=== PATIENT | male | born 1950 | race Caucasian/White ===

== ENCOUNTER 2022-08-10 08:24 | Outpatient (REF) | payer MEDICARE, SELFPAY | END 2022-08-10 08:25 | disposition home or self-care (01) | LOC: HO.BBR 08:24 | PROVIDERS: PCP Internal Medicine; Visit Provider Internal Medicine | DX: Z13.89 Encounter for screening for other disorder (principal) ==

== ENCOUNTER 2022-11-25 08:59 | Outpatient (REF) | payer MEDICARE, SELFPAY | END 2022-11-25 09:00 | disposition home or self-care (01) | LOC: HO.BBR 08:59 | PROVIDERS: Visit Provider Internal Medicine | DX: Z13.89 Encounter for screening for other disorder (principal) ==

== ENCOUNTER 2023-05-25 08:58 | Outpatient (REF) | payer MEDICARE, SELFPAY | END 2023-05-25 08:59 | disposition home or self-care (01) | LOC: HO.BBR 08:58 | PROVIDERS: PCP Pediatrics; Visit Provider Internal Medicine | DX: Z13.89 Encounter for screening for other disorder (principal) ==

== ENCOUNTER 2023-12-16 09:04 | Outpatient (REF) | payer MEDICARE, SELFPAY | END 2023-12-16 09:05 | disposition home or self-care (01) | LOC: HO.BBR 09:04 | PROVIDERS: PCP Pediatrics; Visit Provider Internal Medicine | DX: Z13.89 Encounter for screening for other disorder (principal) ==

== ENCOUNTER 2024-06-15 08:36 | Outpatient (REF) | payer MEDICARE, SELFPAY | END 2024-06-15 08:37 | disposition home or self-care (01) | LOC: HO.BBR 08:36 | PROVIDERS: PCP Pediatrics; Visit Provider Internal Medicine | DX: Z13.89 Encounter for screening for other disorder (principal) ==

== ENCOUNTER 2024-12-18 08:51 | Outpatient (REF) | payer MEDICARE, SELFPAY ==
--- OUTSIDE RECORDS SUMMARY | 2024-12-18 09:30 | XMS_ITS | Data Portability ---
Author Organization [place] - [facility], Allergy Address [address] [place] [phone] Care Team Providers Care Quantitative Developer Name Role Phone MICHAEL ROSAS Primary Care Provider Assessment Encounter Date Assessment Date Assessment LastModified by Organization Details LastModified Time 11/12/2024 11/12/2024 73 year-old male presents for cerumen impaction removal. Cerumen impaction removed bilaterally, which patient tolerated well. Hydrogen peroxide solution was used to soften cerumen in the office. Hearing returned to baseline after procedure. Otologic exam demonstrated TMs are intact with well-aerated middle ear spaces. Recommend a few drops of OTC mineral oil or Debrox as needed. Recommend 6-month follow-up for cerumen removal, sooner with issues. [email or web address] Not available 11/12/2024 11:20:45 Plan of Treatment Reminders Order Date Submit Date Provider Last Modified By Organization Details Last Modified Time Details Appointments Establish ed 15 2024 09:00A M VANESSA PARK PA-C Not available Not available Not available Lab None recorded. Referral None recorded. Procedures None recorded. Surgeries None recorded. Imaging None recorded. Medication Orders None recorded. Patient TargetsNo targets recorded. Patient InstructionsNo instructions recorded. Reason for Referral None Reported. Problems Name Problem SNOMED Code Status Onset Date Resolution Date Notes Provider Name and Address Organization Details Recorded Time Impacted cerumen of bilateral ears [id number] Active 2018 Impacted cerumen, bilateral ; Note: Date Diagnosed : 03/09/2019 10:01 AM (H61.23) Not Available [facility] 4 02:45:55 Sensorine ural hearing loss of bilateral ears 078816013 Active 2018 Sensorine ural hearing loss, bilateral ; Note: Date Diagnosed : 03/09/2019 10:29 AM (H90.3) Not Available [facility] 4 02:45:46 Problem Notes None recorded. Procedures Surgical History Date Name Laterality Status Provider Name and Address Organization Details Recorded Time 5 Cerumen removal without microscope bilat completed VANESSA PARK PA-C [address] [place] [address], [phone], [facility] 11/11/2024 22:06:22 Imaging Results None recorded. Procedure Notes None recorded. Medical Equipment None Reported. Allergies No known drug allergies Medications Name Sig Start Date Stop Date Status Note LastModified by Organization Details LastModified Time azithromycin 250 mg tablet 11/12 completed Not Available Not Available Not Available amoxicillin 875 mg tablet 11/12 completed Not Available Not Available Not Available Praluent Pen 75 mg/mL subcutaneous pen injector INJECT 75 MG UNDER THE SKIN EVERY 14 DAYS 11/12 completed Not Available Not Available Not Available Repatha SureClick 140 mg/mL subcutaneous pen injector INJECT 140MG UNDER THE SKIN EVERY 14 DAYS active Not Available Not Available No t Available Vitals None Recorded Social History None recorded. Functional Status None recorded. Mental Status None recorded. Family History Nothing Reported. Medical History No medical history recorded. Past Encounters Encounter ID Performer Location Encounter Start Date Encounter Closed Date Diagnosis/Indication Diagnosis SNOMED-CT Code Diagnosis ICD10 Code Diagnosis Note [id number] YASMINE CHAMPION MD [facility] [address] [place] [address] 11/12/2024 10:22:35 11/12/2024 11:03:56 Impacted cerumen of bilateral ears [id number] 957497 H61.23 Sensorineu ral hearing loss of bilateral ears 134557340 H90.3 Health Concerns Section Related Observation LastModified by Organization Detai ls LastModified Time None Recorded Concern Status LastModified by Organization Details LastModified Time None Recorded Advance Directives Directive None Recorded Payers Encounter Date Sequence Insurance Name Policy Number Policy Gordon Covered Member ID Gordon Member ID Guarantor Name 11/12/2024 1 MEDICARE [place]: [employer] [address] [id number] [employer] Zende[employer]annita 11/12/2024 2 [facility] [id number] [employer] Zendejasannita [id number] Notes Date Note Type Note Provider Name and Address Organization Details Recorded Time 11/12/2024 text/html 73 year-old presents for evaluation of the ears. Reports muffled hearing with more 'artis'. Denies otalgia, otorrhea, change in tinnitus, or Qtip use. YASMINE CHAMPION MD [address] [place] [address], [phone], [facility] - [facility] 11/12/2024 16:18:41
--- OUTSIDE RECORDS SUMMARY | 2024-12-18 09:30 | XMS_ITS | Continuity of Care Document ---
Author Organization [facility] Address [address] [place] [address]- Care Team Providers Care Soc Analyst Name Role Phone Rose John MD Primary Care Physician Encounter [facility] [place] [facility] Date(s): 11/20/24 - 11/27/24 [facility] [address], [place] [address] Attending Physician: Rose John MD Encounter Type: Office Visit Allergies, Adverse Reactions, Alerts Substance Criticality Severity Reaction Reaction Severity Status pravastatin Diarrhea Active simvastatin Active Immunizations Given and Recorded Vaccine Date Status Refusal Reason influenza virus vaccine, inactivated 08/06/22 Ambrosio rded influenza virus vaccine, inactivated 08/06/21 Ambrosio rded influenza virus vaccine, inactivated 07/10/20 Ambrosio rded influenza virus vaccine, inactivated 07/26/19 Ambrosio rded influenza virus vaccine, inactivated 08/15/18 Ambrosio rded influenza virus vaccine, inactivated 08/03/17 Ambrosio rded influenza virus vaccine, inactivated 08/06/16 Ambrosio rded influenza virus vaccine, inactivated 08/09/12 Ambrosio rded [id number] 12y+ bivalent booster vax 07/02/22 Recorded SARS-CoV-2 mRNA ([id number]) vax 01/29/22 Recorded SARS-CoV-2 (COVID-19) mRNA BNT-162b2 vac 07/24/21 Recorded SARS-CoV-2 (COVID-19) mRNA BNT-162b2 vac 01/09/21 Recorded SARS-CoV-2 (COVID-19) mRNA BNT-162b2 vac 12/20/20 Recorded pneumococcal 23-valent vaccine 12/27/17 Recorded pneumococcal 13-valent vaccine 3/1/17 Recorded tetanus/diphtheria/pertussis, acel(Tdap) 01/03/14 Recorded Zoster Vaccine Live 01/02/09 Recorded tetanus-diphtheria toxoids (Td) 10/25/05 Recorded Medications ondansetron 4 mg oral tablet Ondansetron HCl - 4 MG Oral Tablet one tab q 6-8 hrs Quantity: 40 Refills: 1 Arabella Voar M.D. Started 28-Dec-2018 Active, Maintenance, 12/28/18 12:00:00 AM EST Start Date: 12/28/18 Status: Ordered Repeat number: 1 Praluent Pen 75 mg/mL subcutaneous solution See Instructions, INJECT 75 MG UNDER THE SKIN EVERY 14 DAYS, # 2 mL, 0 Refills, Maintenance, 03/22/24 9:52:00 AM EDT, Dereck [facility] #[id number], 172, cm, 01/24/24 9:18:00 EDT, Height, 97, kg, 01/24/24 9:18:00 EDT, Dry Weight Start Date: 03/22/24 Status: Ordered Quantity: 2.0 Unit: mL Repeat number: 1 Repatha Prefilled Syringe 140 mg/mL subcutaneous solution = 140 mg, Subcutaneous Infusion, Every 14 days, # 6 each, 3 Refills, Maintenance, 04/11/24 4:20:00 PM EDT, Serena Harden [facility] #[id number], Partial fill upon patient request if the prescription is for a schedule II opioid drug., 172, cm, 01/24/24 9:18:00 EDT, Height, 97, kg, 01/24/24 9:18:00 EDT, Dry Weight Start Date: 04/11/24 Status: Ordered Quantity: 6.0 Unit: each Repeat number: 4 Problem List Condition Confirmation Course Effective Dates Status H ealth Status Informant Allergic rhinitis Confirmed Active Cholesterol level - finding Confirmed 03/12/20 Active Diarrhea Confirmed Active Diverticular disease Confirmed 09/12/19 Active Diverticulosis of colon Confirmed Active Environmental allergy Confirmed 09/12/19 Active Erectile dysfunction Confirmed 09/12/19 Active Body aches Confirmed Active Hearing loss Confirmed Active Hemochromatosis Confirmed Active Hyperlipidemia Confirmed Active Allergy desensitization therapy Confirmed Active Erectile dysfunction Confirmed Active Nausea and vomiting Confirmed Active Obese class I Confirmed Active Obstructive sleep apnea syndrome Confirmed Active Polyp of colon Confirmed 09/12/19 Active Prediabetes Confirmed 03/12/20 Active Need for 23-polyvalent pneumococcal polysaccharide vaccine Confirmed Active Statin not tolerated Confirmed 07/05/19 Active Subclinical hypothyroidism Confirmed Active Vitamin D deficiency Confirmed 09/12/19 Active Floaters Confirmed Active Vital Signs Most recent to oldest [Reference Range]: 1 Height 172 cm (11/20/24 1:57 PM) Weight 98.0 kg (11/20/24 1:57 PM) Oxygen Saturation [94-100 %] 97 % (11/20/24 1:57 PM) Pulse Rate [55-90 bpm] 63 bpm (11/20/24 1:57 PM) Body Mass Index [18.5-24.99 kg/m2] 33.13 kg/m2 *>HHI* (11/20/24 1:57 PM) Blood Pressure [90-138/55-84 mm Hg] 116/ 75mm Hg (11/20/24 1:57 PM) Blood pressure sites Arm, left (11/20/24 1:57 PM) Weight Obtained Via Standing scale (11/20/24 1:57 PM) Social History Social History Type Response Smoking Status Never (less than 100 in lifetime) entered on: 11/09/22 Sex Sex Representation Male (finding) Note * Tia Solis: PERFORM Event Display: Patient Education/Instruction Authored Date: [id number] Ambulatory Adult Visit Summary [place] [id number] Name: DAVID ALMANZAR : 1950?? Visit: 11/20/2024 13:29?? Ambulatory Visit Instructions ?? Your Care Team Primary Care Provider Rose John MD? This Visit Provider Rose John MD Vitals Signs Pulse Rate: 63 bpm Height: 172 cm Systolic Blood Pressure: 116 mm Hg Weight: 98 kg Diastolic Blood Pressure: 75 mm Hg Body Mass Index:??33.13 kg/m2??Critical Oxygen Saturation: 97 % Body surface area: 2.16 What to do next Follow-Up Appointments Follow Up with??Rose John MD When:??11/22/2025 01:40 PM EST Why: MEDICARE WELLNESS VISIT?? Where: [facility] [place] [address]- Future Orders Comprehensive Metabolic Panel - Once, *Est. 11/18/23 every 6 months (+/- 56 days) for 18 months, Order for Today?? Lipid Panel - Once, *Est. 11/18/23 every 6 months (+/- 56 days) for 18 months, Order for Today?? Medications The list below reflects the information in our records and provided by you today along with any changes made during this visit. Please continue your medications until treatment is completed or stopped by your provider. If this is different from the information you have or there are other questions,please contact the prescribing provider. What How Much When Instructions Unchanged alirocumab (Praluent Pen 75 mg/ mL subcutaneous solution)See instructions INJECT 75 MG UNDER THE SKIN EVERY 14 DAYS ?? Unchanged evolocumab (Repatha Prefilled Syringe 140 mg/ mL subcutaneous solution) 140 Milligram Subcutaneous Infusion Every 14 days Unchanged Ondansetron (ondansetron 4 mg oral tablet) Ondansetron HCl - 4 MG Oral Tablet one tab q 6-8 hrs Quantity: 40 Refills: 1 Arabella Vora M.D. Started 28-Dec-2018 Active ?? Medications and Immunizations Administered Medications Given During Visit No medications given during this visit.?? Allergies (NKA means No Known Allergies) pravastatin??(Diarrhea) simvastatin Common Emergency Awareness Tips IS IT A STROKE? Act FAST and Check for these signs: FACE Does the face look uneven? ARM Does one arm drift down? SPEECH Does their speech sound strange? TIME Call at any sign of stroke ?? Heart Attack Signs Chest discomfort: Most heart attacks involve discomfort in the center of the chest and lasts more than a few minutes, or goes away and comes back. It can feel like uncomfortable pressure, squeezing, fullness or pain. Discomfort in upper body: Symptoms can include pain or discomfort in one or both arms, back, neck, jaw or stomach. Shortness of breath: With or without discomfort. Other signs: Breaking out in a cold sweat, nausea, or lightheaded. Remember, MINUTES DO MATTER. If you experience any of these heart attack warning signs, call to get immediate medical attention! ?? Smoking can increase your chances of developing chronic health problems and can cause harmful effects to other family members in your house. If you smoke, you are strongly encouraged to quit. Please call [employer] at [phone] or 7-473-083-Udemy ([phone]) or log in to [email or web address] for referrals to smoking cessation programs. ?? The National Suicide Prevention Hotline is available 16/05 if you or someone you know needs to find a reason to keep living. By calling 0-881-872-FlowCo (9700) you'll be connected to a skilled, trained counselor at a crisis center in your area. [facility] Portal You can view and manage your care through the patient portal or by using a health care marisela of your choosing. [employer] is a website that allows you to securely view your medical information including your hospital discharge summary, office visit summaries, medications and follow-up visits. You can also request appointments, renew medications, and request access to your medical information using a health care marisela of your choosing, or just ask a question. You can enroll at [email or web address] or register during your next office visit. [facility], in keeping with [facility] guidance, no longer requires face masks for staff, patientsor visitors in most situations. Similiar to time spent indoors at other locations, there is the chance that you were exposed to repiratory viruses during your time with us (such as flu or COVID-19). If you develop symptoms concerning for a viral respiratory infection, please seek testing (and treatment if indicated) from your medical provider or home test kit. ?? Disclaimer: The information provided is of a general nature and is intended to be used in conjunction with the recommendations and advice of your health care practitioner. Every effort has been made to ensure that the information provided is accurate and complete at the time it is provided to you however, as your needs change, or, as new information becomes available, different or additional instructions may be required. ?? If you have questions, please consult with your primary care provider or pharmacist, as appropriate. This information is not intended to serve as substitution for assessment and evaluation by a qualified health care provider. If you do not have a primary care provider, you may find a [facility] provider by calling [employer] at [phone]. Patient Care team information Care Team Personnel Name: Rose John MD Position: [facility] Physician - Primary Care Member Role: PCP Address: [address] [place] [address] Telecom: Care Team Related Persons Name: WESLEY ALMANZAR Insurance Providers Guarantor name: TIM Health Plan Information #: 1 Payer: MEDICARE PART B OUTPT Member Number: [id number] Policy Number: NA Group Number: NA Health Plan Information #: 2 Payer: MEDEX Member Number: [id number] Policy Number: NA Group Number: NA
--- OUTSIDE RECORDS SUMMARY | 2024-12-18 09:31 | XMS_ITS | Clinical Summary ---
Author Organization [facility] Address [address] [place] [address] Care Team Providers Care Clay Plant Treater Name Role Phone Rose John MD Primary Care Provider Allergies Active Allergy Reactions Criticality Noted Date Comments Statins Diarrhea Low 06/18/2022 Medications Medication Sig Dispensed Refills Start Date End Date Status Praluent 75 MG/ML SOAJ 0 06/11/2022 Ac tive Evolocumab (REPATHA SC) Inject under the skin. 0 Active Active Problems Problem Noted Date Diagnosed Date Hereditary hemochromatosis 06/28/2024 Elevated ferritin level 06/28/2024 Family History Medical History Relation Name Comments Heart attack Mother Stroke Mother Breast cancer Sister Cancer Sister Hemochromatosis Sister Relation Name Status Comments Mother Sister Social History Tobacco Use Types Packs/Day Years Used Date Smoking Tobacco: Never Smokeless Tobacco: Never Alcohol Use Standard Drinks/Week Comments Not Currently 0 (1 standard drink = 0.6 oz pur e alcohol) Sex and Gender Information Value Date Recorded Sex Assigned at Not on file Gender Identity Not on file Sexual Orientation Not on file Job Start Date Occupation Industry Not on file Not on file Not on file Last Filed Vital Signs Vital Sign Reading Time Taken Comments Blood Pressure 115/60 06/28/2024 8:56 AM EDT Pulse 63 06/28/2024 8:56 AM EDT Temperature 36.7 ??C (98 ??F) 06/28/2024 8:56 AM EDT Respiratory Rate - - Oxygen Saturation 97% 06/28/2024 8:56 AM EDT Inhaled Oxygen Concentration - - Weight 98.4 kg (217 lb) 06/28/2024 8:56 AM EDT Height 172.7 cm (5' 8 ) 06/28/2024 8:56 AM EDT Body Mass Index 32.99 06/28/2024 8:56 AM EDT Plan of Treatment Health Maintenance Due Date Last Done Comments Hepatitis C Screening 1950 Depression Screening 1960 Preventative Health Evaluation 1966 Shingrix-Zoster Vaccine (1 of 2) 1998 Fall Risk Assessment 2013 RSV Adult > 60+ Yrs or (1 - 1-dose 75+ series) 2023 DTap / Tdap / Td (2 - Td or Tdap) 01/04/2024 01/03/2014, 10/25/2005 COVID-19 Vaccine ( season) 2024 01/29/2022, 07/24/2021, 01/09/2021, Additional history exists Influenza Vaccine (#1) 2024 , 08/06/2021, 08/06/2021, Additional history exists Pneumococcal Vaccine Completed 12/27/2017, 12/23/19 17 Hepatitis B Vaccines Aged Out No long er eligible based on patient's age to complete this topic RSV Ped < 20 months Aged Out No longe r eligible based on patient's age to complete this topic Care Teams Clay Plant Treater Relationship Specialty Start Date End Date Rose John MD PCP - General Internal Medicine 10/26/22
--- OUTSIDE RECORDS SUMMARY | 2024-12-18 09:31 | XMS_ITS | Clinical Summary ---
Author Organization [facility] Address [address] [place] [address] Care Team Providers Care Correspondence Transcriber Name Role Phone Natanael Fermin MD Primary Care Provider [phone] Immunizations Name Administration Dates Next Due Pfizer (ages 12 & older) SANDEE S-CoV-2 COVID-19, mRNA, LNP-S, xiao-sucrose, preservative free 01/29/2022 Pfizer SARS-CoV-2 COVID-19, mRNA, LNP-S, preservative free 01/29/2022,07/24/2021,01/09/2021,2020 Surgical History Surgery Date Site/Laterality Comments TONSILLECTOMY ADENOIDECTOMY, BILATERAL MYRINGOTOMY AND TUBES PROCEDURE:TONSILECTOMY, ADENOIDECTOMY, BILATERAL MYRINGOTOMY AND TUBES COLONOSCOPY PROCEDURE:COLONOSCOPY;COMMENT:2 018 Family History Medical History Relation Name Comments [...] Recorded Sex Assigned at Not on file Legal Sex Male 2:23 AM EST Gender Identity Not on file Sexual Orientation Not on file Obstetrics History Last Filed Vital Signs Vital Sign Reading Time Taken Comments Blood Pressure 115/60 06/28/2024 8:56 AM EDT Sitting Right arm Pulse 63 06/28/2024 8:56 AM EDT Temperature - - Respiratory Rate - - Oxygen Saturation - - Inhaled Oxygen Concentration - - Weight 98.4 kg (217 lb) 06/28/2024 8:56 AM EDT Height 172.7 cm (5' 8 ) 06/28/2024 8:56 AM EDT Body Mass Index 32.99 06/28/2024 8:56 AM EDT Plan of Treatment Upcoming Encounters Date Type Department Care Team (Late st Contact Info) Description 06/28/2025 9:00 AM EDT Office Visit [facility] Hematology Oncology [address] [place] [address] Chuy Blackburn MD [address] [place] [address] Health Maintenance Due Date Last Done Comments Zoster Vaccines (1 of 2) 02/27/2009 01/02/2009 Cholesterol Screening (Lipid Panel) 10/02/2022 Colorectal Cancer Screening: Colonoscopy 10/02/2022 Depression Screening 10/02/2022 Falls Risk Assessment 10/02/2022 Hepatitis C Screening 10/02/2022 Medicare Annual Wellness Visit 10/02/2022 Social Influencers of Health Screening 10/02/2022 RSV Immunization Patients 60+ Years Old (1 - 1-dose 75+ series) 2023 DTaP,Tdap,and Td Vaccines (3 - Td or Tdap) 01/04/2024 01/03/2014, 10/25/2005 COVID-19 Vaccine ( season) 2024 01/29/2022, 01/29/2022, 07/24/2021, Additional history exists Influenza Vaccine (#1) 2024 , 08/06/2022, 08/06/2021, Additional history exists Pneumococcal Vaccine: 50+ Years Completed 12/27/2017, 12/22/2016 HIB Vaccines Aged Out No longer eligi ble based on patient's age to complete this topic HPV Vaccines Aged Out No longer eligi ble based on patient's age to complete this topic Hepatitis A Vaccines Aged Out No long er eligible based on patient's age to complete this topic Hepatitis B Vaccines Aged Out No long er eligible based on patient's age to complete this topic IPV Vaccines Aged Out No longer eligi ble based on patient's age to complete this topic MMR Vaccines Aged Out No longer eligi ble based on patient's age to complete this topic Meningococcal ACWY Vaccine Aged Out N o longer eligible based on patient's age to complete this topic Meningococcal B Vacine Aged Out No lo nger eligible based on patient's age to complete this topic RSV Immunization Patients Under 20 months Aged Out No longer eligible based on patient's age to complete this topic Varicella Vaccines Aged Out No longer eligible based on patient's age to complete this topic Insurance MEDICARE Care Teams Correspondence Transcriber Relationship Specialty Start Date End Date Natanael Fermin MD [address] [place] [address] PCP - General 09/04/23
== END 2024-12-18 08:52 | disposition home or self-care (01) ==
LOC: HO.BBR 08:51
PROVIDERS: PCP Pediatrics; Visit Provider Internal Medicine
DX: Z13.89 Encounter for screening for other disorder (principal)

== ENCOUNTER 2025-06-21 09:59 | Outpatient (REF) | payer MEDICARE, SELFPAY ==
--- OUTSIDE RECORDS SUMMARY | 2025-06-21 10:45 | XMS_ITS ---
Author Name [facility] Organization Unknown Care Team Organization Name Specialty Phone Email Start Date End Da te [facility] Zoran Justin Primary Care 04/01/202306/11 [facility] Edna, PROVIDER Primary Care 08/31/202205/24
--- OUTSIDE RECORDS SUMMARY | 2025-06-21 10:45 | XMS_ITS | Clinical Summary ---
Author Organization [facility] Address [address] [place] [address] Care Team Providers Care Forensic Examiner Name Role Phone Natanael Fermin MD Primary Care Provider [phone] Immunizations Name Administration Dates Next Due Pfizer [...] Description 06/28/2025 9:00 AM EDT Office Visit [facility] Hematology Oncology [address] [place] [address] Chuy Blackburn MD [address] [place] [address] Health Maintenance Due Date Last Done Comments Zoster Vaccines (2 of 3) 02/27/2009 01/02/2009 Cholesterol Screening (Lipid Panel) 10/02/2022 Colorectal Cancer Screening: Colonoscopy 10/02/2022 Falls Risk Assessment 10/02/2022 Hepatitis C Screening 10/02/2022 Medicare Annual Wellness Visit 10/02/2022 Social Influencers of Health Screening 10/02/2022 RSV Immunization Adult Patients (1 - 1-dose 75+ series) 2023 DTaP,Tdap,and Td Vaccines (3 - Td or Tdap) 01/04/2024 01/03/2014, 10/25/2005 COVID-19 Vaccine ( season) 2024 01/29/2022, 01/29/2022, 07/24/2021, Additional history exists Depression Screening 10/24/2024 Influenza Vaccine (#1) 2025 , 08/06/2022, 08/06/2021, Additional history exists Pneumococcal [...] age to complete this topic Meningococcal B Vaccine Aged Out No l onger eligible based on patient's age to complete this topic RSV Immunization Patients Under 20 months Aged Out No longer eligible based on patient's age to complete this topic Varicella Vaccines Aged Out No longer eligible based on patient's age to complete this topic Insurance MEDICARE Care Teams Forensic Examiner Relationship Specialty Start Date End Date Natanael Fermin MD [address] [place] [address] PCP - General 09/04/23
--- OUTSIDE RECORDS SUMMARY | 2025-06-21 10:45 | XMS_ITS | Clinical Summary ---
Author Organization [facility] Address [address] [place] [address] Care Team Providers Care Green Pipefitter Name Role Phone Rose John MD Primary [...] 63 06/28/2024 8:56 AM EDT Temperature 36.7 C (98 F) 06/28/2024 8:56 AM EDT Respiratory Rate - [...] 01/09/2021, Additional history exists Influenza Vaccine (#1) 2025 , 08/06/2021, 08/06/2021, Additional history exists Pneumococcal Vaccine Completed 12/27/2017, 12/23/19 17 Hepatitis B Vaccines Aged Out No long er eligible based on patient's age to complete this topic RSV Ped < 20 months Aged Out No longe r eligible based on patient's age to complete this topic Care Teams Green Pipefitter Relationship Specialty Start Date End Date Rose John MD PCP - General Internal Medicine 10/26/22
== END 2025-06-21 10:00 | disposition home or self-care (01) ==
LOC: HO.BBR 09:59
PROVIDERS: Visit Provider Internal Medicine
DX: Z13.89 Encounter for screening for other disorder (principal)